=== PATIENT | male | born 1965 | race Caucasian/White ===

== ENCOUNTER 2023-04-25 11:05 | Emergency (ER) | payer OTHER ==
[2023-04-25 11:16] VITALS: BP 106/59; PULSE 74; RESP 16; TEMP 98.2; BMI 37.3
== END 2023-04-25 12:45 | disposition home or self-care (01) ==
LOC: JERFT 11:05
DX: R50.9 Fever, unspecified (principal); R05.9 Cough, unspecified; J06.9 Acute upper respiratory infection, unspecified; Z20.822 Contact with and (suspected) exposure to COVID-19
CPT/HCPCS: 0241U-QW; 71046-TC-FY; 99284-25

== ENCOUNTER 2025-03-24 11:03 | Emergency (ER) | payer OTHER ==
[2025-03-24 11:11] VITALS: BP 115/68; PULSE 89; RESP 20; TEMP 98.2; BMI 36.8
[2025-03-24] MEDS ORDERED: IBUPROFEN 600 MG TABLET (FP) PO ONE (11:28)
[2025-03-24] MEDS: IBUPROFEN 600 MG TABLET (FP) PO ONE (11:33)
[2025-03-24 15:46] LABS: HIV INTERPRETATION NEGATIVE (NEGATIVE)
[2025-03-24 15:48] LABS: HCV DIAGNOSTIC IN-HOUSE W/RFLX NON-REACTIVE (NONREACTIVE)
== END 2025-03-24 12:11 | disposition home or self-care (01) ==
LOC: JERFT 11:03
DX: M77.32 Calcaneal spur, left foot (principal); M79.672 Pain in left foot
CPT/HCPCS: 36415; 73630-TC-LT; 86803; 87389; 99284-25